=== PATIENT | male | born 2005 | race Two or more races ===

== ENCOUNTER 2024-07-04 13:25 | Emergency (ER) | payer SELFPAY ==
[2024-07-04 13:35] VITALS: PULSE 103; BMI 31.3
[2024-07-04 14:05] VITALS: BP 129/79; PULSE 72; RESP 18; TEMP 36.8; O2SAT 97
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
== END 2024-07-04 16:40 | disposition home or self-care (01) ==
PROVIDERS: Emergency Provider Emergency Medicine
DX: S13.4XXA Sprain of ligaments of cervical spine, initial encounter (principal); S09.90XA Unspecified injury of head, initial encounter; S29.9XXA Unspecified injury of thorax, initial encounter; S39.91XA Unspecified injury of abdomen, initial encounter; V89.2XXA Person injured in unspecified motor-vehicle accident, traffic, initial encounter
CPT/HCPCS: 70450; 71250; 72125; 74176; 99284